=== PATIENT | female | born 1990 | race African-American/Black ===

== ENCOUNTER 2016-10-17 09:11 | Emergency (ER) | payer SELFPAY ==
[~2016-10-17] VITALS: Ht 165.1 cm; Wt 65.8 kg
[2016-10-17] MEDS ORDERED: NKM (09:34)
--- NOTE | 2016-10-17 10:18 | Emergency Room Report ---
History of Present Illness General Chief Complaint: Skin Rash/Abscess Source: Patient Present Illness HPI Patient presents with complaints of a red devin on the left top parietal area of her head Patient reports she noticed the area 3 days ago is tender on palpation Denies any fevers or chills Denies any vomiting or diarrhea denies any visual changes Pain is 3/10 worse with touch denies any discharge Allergies: Coded Allergies: No Known Allergies (Unverified , 10/17/16) Patient History Past Medical History: see triage record Pertinent Family History: none Last Menstrual Period: 10/10/2016 : 1 Para: 1 Reviewed Nursing Documentation: PMH: Agreed, PSxH: Agreed Nursing Documentation-PMH Past Medical History: No Stated History Review of Systems All Other Systems: negative except mentioned in HPI Physical Exam Vital Signs Date Time Temp Pulse Resp B/P Pulse Ox O2 Delivery O2 Flow Rate FiO2 10/17/16 09:28 98.2 88 16 121/74 100 Room Air Sp02 EP Interpretation: reviewed, normal General Appearance: well appearing, no apparent distress Head: normocephalic, atraumatic Eyes: bilateral eye EOMI, bilateral eye PERRL ENT: hearing grossly normal, normal pharynx, TMs + canals normal, uvula midline Neck: full range of motion, supple, no meningismus, no bony tend Respiratory: lungs clear Musculoskeletal: normal inspection Neurologic: alert, oriented x3, responsive Skin: other - Small localized area of what appears to be likely folliculitis left parietal region, no obvious fluctuance, no obvious lymphadenopathy or other spread Lymphatic: no adenopathy Medical Decision Making Diagnostic Impression: Primary Impression: folliculitis ER Course Area appears to be fairly benign in nature Small folliculitis likely No obvious abscess or fluctuance Patient was given further information regarding washing with shampoo and warm water I do not feel the area requires antibiotics at this time the patient stable for close outpatient followup Last Vital Signs Date Time Temp Pulse Resp B/P Pulse Ox O2 Delivery O2 Flow Rate FiO2 10/17/16 09:28 98.2 88 16 121/74 100 Room Air Status: unchanged Disposition: HOME, SELF-CARE Condition: Stable Patient Instructions: Folliculitis Additional Instructions: Patient is provided with the discharge instructions notified to follow up with primary doctor in the next 2-3 days otherwise return to the er with any worsening symptoms. Please note that this report is being documented using [employer] technology. This can lead to erroneous entry secondary to incorrect interpretation by the dictating instrument. DIONI AQUINO D.O. Oct 17, 2016 10:18
[2016-10-17 10:22] VITALS: BP 118/87
== END 2016-10-17 11:00 | disposition home or self-care (01) ==
LOC: EMR 10:39
DX: L73.9 Follicular disorder, unspecified (principal)
CPT/HCPCS: 99281